=== PATIENT | male | born 1985 | race Hispanic/Latino ===

== ENCOUNTER 2019-07-03 13:33 | Emergency (ER) | payer OTHER ==
[~2019-07-03] VITALS: Ht 188 cm; Wt 111.3 kg
[~2019-07-03 13:33] MED LIST: KEFLEX500 M1 PO
[2019-07-03 14:10] VITALS: BP 115/74
== END 2019-07-03 14:10 | disposition home or self-care (01) ==
LOC: ED 13:33
DX: S61.211D Laceration without foreign body of left index finger without damage to nail, subsequent encounter (principal); W27.1XXD Contact with garden tool, subsequent encounter

== ENCOUNTER 2019-07-08 18:57 | Emergency (ER) | payer OTHER ==
[~2019-07-08] VITALS: Ht 188 cm; Wt 112.4 kg
[2019-07-08 19:58] VITALS: BP 114/67
== END 2019-07-08 19:58 | disposition home or self-care (01) ==
LOC: ED 18:57
DX: S61.200D Unspecified open wound of right index finger without damage to nail, subsequent encounter (principal); X58.XXXD Exposure to other specified factors, subsequent encounter

== ENCOUNTER 2019-07-13 09:35 | Emergency (ER) | payer SELFPAY ==
[~2019-07-13] VITALS: Ht 188 cm; Wt 110.0 kg
[2019-07-13 10:13] VITALS: BP 132/80
== END 2019-07-13 10:19 | disposition home or self-care (01) | DRG 950 ==
LOC: ED 09:35
DX: S61.211D Laceration without foreign body of left index finger without damage to nail, subsequent encounter (principal); X58.XXXD Exposure to other specified factors, subsequent encounter

== ENCOUNTER 2023-01-01 17:32 | Emergency (ER) | payer BC ==
[~2023-01-01] VITALS: Ht 188 cm; Wt 102.0 kg
[2023-01-01] VITALS (15 sets, daily range): BP systolic 104–134; BP diastolic 63–98
[2023-01-01 19:39] LABS: BASO% 0.4 % (0-3); EOS% 3.6 % (0-8); HEMATOCRIT 40.8 % (39.0-50.0); HEMOGLOBIN 13.6 g/dl (14.0-18.0); IMMATURE GRANULOCYTES 2.8 % (0.0-5.0); LYMPH% 26.7 % (15-41); MEAN CELL VOLUME 87.6 fL CALC (80.0-100.0); MEAN CORPUSCULAR HGB 29.2 pG CALC (26.0-32.0); MEAN CORPUSCULAR HGB CONC 33.3 g/dL CAL (32.0-36.0); MONO% 9.2 % (2-13); NEUT# 3.04 thou/uL (1.82-7.42); NEUT% 57.3 % (42-76); RED BLOOD COUNT 4.66 mill/uL (4.70-6.10); RED CELL DISTRI WIDTH 12.3 % (11.5-15.5)
[2023-01-01 19:55] LABS: ALBUMIN 4.3 g/dL (3.2-5.0); ALKALINE PHOSPHATASE 71 u/l (38-126); ANION GAP 15 (6-22 (CALC)); BUN 28 mg/dL (9-20); BUN/CREATININE RATIO 31 (12-20 (CALC)); C-REACTIVE PROTEIN 5.6 mg/dL (0-0.9); CARBON DIOXIDE 23 mmol/l (22-30); CHLORIDE 102 mmol/l (95-108); CREATININE 0.9 mg/dL (0.7-1.3); GFR FOR AFR.AMER. > 60 ML/MIN (>=60 (CALC)); GFR OTHER RACES > 60 ML/MIN (>=60 (CALC)); POTASSIUM 4.1 mmol/l (3.5-5.1); SODIUM 136 mmol/l (137-146); TOTAL PROTEIN 7.8 g/dL (6.3-8.2)
[2023-01-01 19:59] LABS: BILIRUBIN, TOTAL 0.4 mg/dL (0.2-1.3); SGOT/AST 20 u/l (17-59)
[2023-01-01] MEDS ORDERED: VIBRAMYCIN100 M2 PO (20:24)
== END 2023-01-01 22:49 | disposition home or self-care (01) | DRG 638 ==
LOC: ED 17:32
PROVIDERS: Nurse Practitioner
DX: E11.621 Type 2 diabetes mellitus with foot ulcer (principal); L03.116 Cellulitis of left lower limb; L97.529 Non-pressure chronic ulcer of other part of left foot with unspecified severity; E11.628 Type 2 diabetes mellitus with other skin complications; Z79.84 Long term (current) use of oral hypoglycemic drugs; E11.65 Type 2 diabetes mellitus with hyperglycemia

== ENCOUNTER 2024-08-02 00:41 | Emergency (ER) | payer SELFPAY ==
[~2024-08-02] VITALS: Ht 188 cm; Wt 106.0 kg
[~2024-08-02 00:41] MED LIST changes: +VIBRAMYCIN100 M2 PO
[2024-08-02] MEDS ORDERED: INSULIN REGULAR (HUMAN) 100 UNIT/ML INJ SC ONE (01:00)
[2024-08-02] MEDS ORDERED: SODIUM CHLORIDE 0.9% 1,000 ML IV ONE (01:00)
[2024-08-02] MEDS ORDERED: Levofloxacin 750 mg Premix 150 ML IV ONE (01:00)
[2024-08-02 01:07] VITALS: BP 138/85
[2024-08-02] MEDS ORDERED: GLIMEPIRIDE2 MG PO (01:09)
[2024-08-02] MEDS ORDERED: LEVOFLOXACIN750 MG PO (01:09)
[2024-08-02] MEDS ORDERED: JARDIANCE10 MG PO (01:09)
[2024-08-02 01:15] VITALS: BP 121/72
[2024-08-02] MEDS ORDERED: levoFLOXacin 500 MG TAB PO ONE (01:15)
[2024-08-02] MEDS ORDERED: GLIMEPIRIDE PO ONE (01:15)
[2024-08-02 01:17] VITALS: BP 121/72
== END 2024-08-02 01:32 | disposition home or self-care (01) | DRG 639 ==
LOC: ED 00:41
DX: E11.621 Type 2 diabetes mellitus with foot ulcer (principal); L97.529 Non-pressure chronic ulcer of other part of left foot with unspecified severity; T38.3X6A Underdosing of insulin and oral hypoglycemic [antidiabetic] drugs, initial encounter; Z91.128 Patient's intentional underdosing of medication regimen for other reason